=== PATIENT | female | born 1995 | race Caucasian/White ===

== ENCOUNTER → 2016-09-22 | Outpatient (CLI) | payer BC, OTHER ==
[~2016-09-22] MED LIST: BCPILLS PO; CETI10TA84 PO; MONT1TAB3 PO; ONDA4TAB10 SL
--- NOTE | 2016-09-22 18:22 | DIAGNOSTIC IMAGING REPORT ---
RIGHT SHOULDER MIN 2 VIEWS ROUTINE CLINICAL HISTORY: Right shoulder pain HISTORY OF DISLOCATION COMPARISON: None. DISCUSSION: No fractures or dislocations are visualized. There are no visible periarticular calcifications IMPRESSION: No fractures or dislocations identified. Electronically signed by: Adrián Guerin M.D. 09/22/2016 6:20 PM Dictated Date/Time: 09/22/2016 6:19 PM
== END | disposition home or self-care (01) ==
LOC: C.RAD 17:59
PROVIDERS: ATTEND Physical Medicine & Rehabilitation Sports Medicine
DX: S43.001A Unspecified subluxation of right shoulder joint, initial encounter (principal); X58.XXXA Exposure to other specified factors, initial encounter